=== PATIENT | male | born 1975 | race Caucasian/White ===

== ENCOUNTER 2024-12-28 12:56 | Outpatient (REF) | payer OTHER, SELFPAY ==
[2024-12-28 13:18] LABS: MANUAL DIFF FLAG NO
[2024-12-28 13:31] LABS: Ammonia 39 umol/L (13-55)
[2024-12-28 13:39] LABS: Alanine Aminotransferase 13 U/L (0-40); Albumin Level 4.7 g/dL (3.5-5.0); Alkaline Phosphatase 103 U/L (39-117); Anion Gap 11 (12-20); Aspartate Amino Transferase 22 U/L (5-37); Blood Urea Nitrogen 13 mg/dL (9-16); Calcium 8.9 mg/dL (8.4-10.2); Carbon Dioxide 24 mmol/L (22-29); Chloride 103 mmol/L (96-108); Estimated Glomerular Filt Rate > 60; Potassium 4.9 mmol/L (3.3-5.1); Sodium 133 mmol/L (135-145); Total Protein 7.5 g/dL (6.5-8.0)
[2024-12-28 13:45] LABS: Hematocrit 38.7 % (42.0-52.0); Hemoglobin 13.6 g/dl (14.0-18.0); Imm Gran Abs Auto 0.01 X10*3/uL (0.00-0.03); Imm Gran Pct Auto 0.1 % (0.0-0.4); Lymphocytes Absolute Auto 1.5 X10*3/uL (1.2-4.9); Mean Corpuscular HGB Conc 35.1 g/dl (31.0-36.0); Mean Corpuscular Hemoglobin 29.9 pg (27.0-33.0); Mean Corpuscular Volume 85.1 fL (80.0-98.0); NRBC Abs Auto 0.000 X10*3/uL (0.0-0.012); NRBC Pct Auto 0.0 /100WBC (0.0-0.2); Platelet Count 282 X10*3/uL (160-400); Red Blood Count 4.55 X10*6/uL (4.60-5.80); White Blood Count 6.8 X10*3/uL (4.8-10.8)
--- OUTSIDE RECORDS SUMMARY | 2024-12-28 15:14 | XMS_ITS | Clinical Summary ---
Author Organization [facility] Address [address] [place] [address] Care Team Providers Care Record Label Intern Name Role Phone Jona Connell MD Primary Care Provider [phone] Allergies No known active allergies Medications * This document contains information received from the source organization and may not represent a complete record from that organization. metoprolol tartrate (Lopressor) 50 MG tablet Take 1 tablet by mouth 2 (two) times a day. 2 Active albuterol (Proventil;Vent magda) 108 (90 Base) MCG/ACT inhaler Inhale 2 puffs every 4 (four) hours if needed for wheezing. 2 Active buprenorphine-n aloxone (Suboxone) 8-[address] 1 Film under the tongue 1 (one) time each day. 2 Active traZODone (Desyrel) 50 MG tablet Take 50 mg by mouth every night. 3 Active OXcarbazepine (Trileptal) 300 MG tablet Take 300 mg by mouth in the morning and 300 mg before bedtime. 3 Active citalopram (CeleXA) 20 MG tablet Take 20 mg by mouth 1 (one) time each day. 3 Active QUEtiapine (SEROquel) 100 MG tablet Take 100 mg by mouth 1 (one) time each day. Active mometasone-form oterol (Dulera 200) 200-5 MCG/ACT inhaler Inhale 2 puffs in the morning and 2 puffs before bedtime. Rinse mouth with water after use to reduce aftertaste and incidence of candidiasis. Do not swallow.. 13 g 11 3 Active Active Problems Problem Noted Date Diagnosed Date Alcohol withdrawal seizure without complication 03/05/2023 Syncope 01/21/2023 COPD exacerbation 01/21/2023 Streptococcal pneumonia 09/27/2022 09/26/19 Hyponatremia 09/25/2022 COPD without exacerbation 09/25/2022 Anxiety disorder 09/25/2022 Alcohol withdrawal syndrome without complication 10/07/2021 GI bleeding 09/08/2021 Gastrointestinal hemorrhage, unspecified gastrointestinal hemorrhage type 09/08/2021 Aspiration pneumonia of left lower lobe due to regurgitated food 08/04/2021 01/21/2023 Hypomagnesemia 08/03/2021 01/21/2023 Acute drug withdrawal syndrome, uncomplicated Pseudoseizure 04/14/2021 Alcohol withdrawal seizure with delirium 022 Nicotine dependence, cigarettes, with withdrawal 04/04/2021 Alcohol withdrawal 04/03/2021 COVID-19 03/17/2021 01/21/2023 Overview (01/21/2023): Last Assessment & Plan: Not hypoxic and with no identifiable comorbid conditions predisposing to acute decline in clinical status. Albuterol hfa prn Alcohol abuse with withdrawal 12/20/2020 Hypoxemia 12/20/2020 Essential hypertension 12/20/2020 History of anxiety 12/20/2020 Tobacco abuse 12/20/2020 Alcohol dependence 07/03/2020 Cannabis dependence, uncomplicated 07/03/2020 Major depressive disorder, single episode, moder ate 07/03/2020 Opioid dependence in remission 07/03/2020 Pneumonia 07/03/2020 Encounters Date Type Department Care Team Description 11/30/2024 3:06 PM EDT - 11/30/2024 11:59 PM EDT Hospital Encounter [facility] [address] [place] [id number] Discharge Disposition: Home/Self Care from Last 3 Months Immunizations Immunization Administration Dates Next Due Influenza, Quadrivalent, Preservative Free 03/20 Tdap 07/05/2020 Family History Medical History Relation Comments Diverticulitis Mother Relation Status Comments Mother Social History Tobacco Use Types Packs/Day Years Used Date Smoking Tobacco: Every Day Cigarettes 1 10 Smokeless Tobacco: Never Tobacco Cessation:Ready to Q uit: Not Asked; Counseling Given: Not Answered Alcohol Use Standard Drinks/Week Comments Not Currently 0 (1 standard drink = 0.6 oz pur e alcohol) Overall Financial Resource Strain (CARDIA) Answe r Date Recorded How hard is it for you to pa y for the very basics like food, housing, medical care, and heating? Not hard at all 05/23/2023 PHQ-2 Answer Date Recorded Patient Health Questionnaire-2 Score 2 09/25/2022 [facility] Occupat ional Health - Occupational Stress Questionnaire Answer Date Recorded Do you feel stress - tense, restless, nervous, or anxious, or unable to sleep at night because your mind is troubled all the time - these days? Very much 09/25/2022 Exercise Vital Sign Answer Date Recorde d On average, how many days pe r week do you engage in moderate to strenuous exercise (like a brisk walk)? 3 days 09/25/2022 On average, how many minutes do you engage in exercise at this level? 30 min 09/25/2022 Hunger Vital Sign Answer Date Recorded Within the past 12 months, y ou worried that your food would run out before you got the money to buy more. Never true 05/23/19 24 Within the past 12 months, t he food you bought just didn't last and you didn't have money to get more. Never true 05/23/2023 PRAPARE - Transportation Answer Date Re corded In the past 12 months, has l ack of transportation kept you from medical appointments or from getting medications? Yes 02/2023 In the past 12 months, has l ack of transportation kept you from meetings, work, or from getting things needed for daily living? Yes 05/23/2023 Housing Stability Vital Sign Answer Celso e Recorded In the last 12 months, was t here a time when you were not able to pay the mortgage or rent on time? No 05/23/2023 In the last 12 months, how many places have you lived? 1 05/23/2023 In the last 12 months, was t here a time when you did not have a steady place to sleep or slept in a intermediate (including now)? No 05/23/2023 Alcohol Use/AUDIT-C Answer Date Recorde d How often do you have a drink containing alcohol ? 2-3 times a week 05/23/2023 How many standard drinks con taining alcohol do you have on a typical day? 5 or 6 05/23/2023 How often do you have six or more drinks on one occasion? Weekly 05/23/2023 Sex and Gender Information Value Date Recorded Sex Assigned at Not on file Legal Sex Male 9:03 PM EDT Gender Identity Not on file Sexual Orientation Not on file Last Filed Vital Signs Vital Sign Reading Time Taken Comments Blood Pressure 153/107 05/31/2024 2:59 PM EDT Pulse 84 05/31/2024 2:59 PM EDT Temperature 36.4 C (97.5 F) 05/31/2024 2:59 PM EDT Respiratory Rate 18 05/31/2024 2:59 PM EDT Oxygen Saturation 97% 05/31/2024 2:59 PM EDT Inhaled Oxygen Concentration - - Weight 97.5 kg (215 lb) 11/23/2023 12:06 AM EDT Height 188 cm (6' 2 ) 11/23/2023 12:06 AM EDT Body Mass Index 27.6 11/23/2023 12:06 AM EDT Plan of Treatment Health Maintenance Due Date Last Done Comments Hepatitis C Screening 1975 HIV Screening 04/29/1990 Annual Wellness Visit 04/29/1993 Pneumococcal Vaccine: Pediat rics (0 to 5 Years) and At-Risk Patients (6 to 64 Years) (1 of 2 - PCV) 04/29/1994 CT Colonography 04/29/2020 FIT-DNA 04/29/2020 FIT 04/29/2020 FOBT 04/29/2020 Sigmoidoscopy 04/29/2020 Influenza Vaccine (#1) 2024 03/20/2017 DTaP,Tdap,and Td Vaccines (2 - Td or Tdap) 07/05/2030 07/05/2020 Colonoscopy 09/11/2031 09/10/2021 Colorectal Cancer Screening 09/11/2031 Diabetes Screening Discontinued 08/04/2021 HPV Vaccines Aged Out No longer eligi ble based on patient's age to complete this topic Meningococcal Vaccine Aged Out No anne kimberly eligible based on patient's age to complete this topic Procedures Procedure Name Priority Date/Time Associated Diagnosis Comments HC EVAL OF BRONCHOSPASM - SPIROMETRY WITH BRONCHODILATOR Routine 11/30/2024 3:22 PM EDT Unspecified asthma, uncomplicated ([facility]) COLONOSCOPY Routine 09/10/2021 11:30 AM EDT from Last 3 Months or Most Recently Relevant to Health Maintenance Results * Pulmonary function test (11/30/2024 3:22 PM EDT) Narrative Artie Zaomra MD - 12/04/2024 11:37 AM EDT Pulmonary Function Test Interpretation Test performed: Spirometry and bronchodilator test. Spirometry: Spirometry shows an obstructive ventilatory defect. The degree of obstruction is moderate per Z-score criteria. Reduction in forced vital capacity may suggest a concomitant restrictive lung disease. Lung volumes required for further assessment. Bronchodilator Challenge: Positive bronchodilator challenge in both FVC and FEV1. Summary: Moderate obstruction with positive bronchodilator response, compatible with COPD/asthma. Reduction in FVC might suggest a possible restrictive lung disease, lung volumes needed to further assess. Artie Zamora MD MPH Division of Pulmonary and Critical Care [facility] Colby Castro MD PFT ORDERABLES Final Result * Colonoscopy (09/10/2021 11:30 AM EDT) Anatomical Region Laterality Modality Other 09/10/2021 11:0 6 AM EDT Narrative 09/10/2021 11:27 AM EDT [facility] Patient Name: Scot Miller Procedure Date: 09/10/2021 11:06 AM Date of : 1975 Admit Type: Inpatient Age: 46 Room: O.R. ([facility]) Gender: Male Note Status: Finalized Attending MD: SAL WESTON MD Procedure: Colonoscopy Indications: Hematochezia, Rectal bleeding Providers: SAL WESTON MD, Bertha Guzman RN, Niru Lange, Paul Adams (Anesthesia Staff), MELYSSA OBREGON MD (Ordering Provider) Referring MD: JONA CONNELL MD Medicines: Monitored Anesthesia Care Complications: No immediate complications. Procedure: Pre-Anesthesia Assessment: - Prior to the procedure, a History and Physical was performed, and patient medications, allergies and sensitivities were reviewed. The patient's tolerance of previous anesthesia was reviewed. - The risks and benefits of the procedure and the sedation options and risks were discussed with the patient. All questions were answered and informed consent was obtained. Prior to performing the procedure, a history and physical was performed and medications and allergies were reviewed and recorded on the [facility] record. The was introduced through the anus and advanced to the the terminal ileum, with identification of the appendiceal orifice and IC valve. The colonoscopy was performed without difficulty. The patient tolerated the procedure well. The quality of the bowel preparation was good. Findings: The terminal ileum appeared normal. A few small-mouthed diverticula were found in the sigmoid colon, descending colon and ascending colon. Non-bleeding internal hemorrhoids were found during retroflexion. The hemorrhoids were medium-sized. Impression: - The examined portion of the ileum was normal. - Diverticulosis in the sigmoid colon, in the descending colon and in the ascending colon. - Non-bleeding internal hemorrhoids. - No specimens collected. Recommendation: - GI work-up completed at this time Advance diet Rectal bleeding was either diverticular or hemorrhoidal mediated. Procedure Code(s): --- Professional --- 71354, Colonoscopy, flexible; diagnostic, including collection of specimen(s) by brushing or washing, when performed (separate procedure) Diagnosis Code(s): --- Professional --- K64.8, Other hemorrhoids K92.1, Melena (includes Hematochezia) K62.5, Hemorrhage of anus and rectum K57.30, Diverticulosis of large intestine without perforation or abscess without bleeding CPT copyright 2019 [employer]. All rights reserved. The codes documented in this report are preliminary and upon physician coder review may be revised to meet current compliance requirements. Electronically signed by: MD SAL Brown MD 09/10/2021 11:27:35 AM Number of Addenda: 0 Note Initiated On: 09/10/2021 11:06 AM Procedure Date: 09/10/2021 11:06:27 AM Procedure Note Sal Weston MD - 09/10/2021 [facility] Patient Name: Scot Miller Procedure Date: 09/10/2021 11:06 AM Date of : 1975 Admit Type: Inpatient Age: 46 [facility] Gender[facility] Note Status: Finalized Attending MD: SAL WESTON MD Procedure: Colonoscopy Indications: Hematochezia, Rectal bleeding Providers: SAL WESTON MD, Bertha Guzman RN,Paul August (Anesthesia Staff), MELYSSA OBREGON MD (Ordering Provider) Referring MD: JONA CONNELL MD Medicines: Monitored Anesthesia Care Complications: No immediate complications. Procedure: Pre-Anesthesia Assessment: - Prior to the procedure, a History and Physicalwas performed, and patient medications, allergies and sensitivities were reviewed. The patient'stolerance of previous anesthesia was reviewed. - The risks and benefits of the procedure and the sedation options and risks were discussed with the patient. All questions were answered and informed consent was obtained. Prior to performing the procedure, a history and physical was performed and medications andallergies were reviewed and recorded on the [facility] record. Thewas introduced through the anus and advanced to the the terminal ileum, with identification of theappendiceal orifice and IC valve. The colonoscopy was performed without difficulty. The patient tolerated the procedure well. The quality of the bowelpreparation was good. Findings: The terminal ileum appeared normal. A few small-mouthed diverticula were found in the sigmoid colon, descending colon and ascending colon. Non-bleeding internal hemorrhoids were found during retroflexion. The hemorrhoids were medium-sized. Impression: - The examined portion of the ileum was normal. - Diverticulosis in the sigmoid colon, in the descending colon and in the ascending colon. - Non-bleeding internal hemorrhoids. - No specimens collected. Recommendation: - GI work-up completed at this time Advance diet Rectal bleeding was either diverticular or hemorrhoidal mediated. Procedure Code(s): --- Professional --- 47868, Colonoscopy, flexible; diagnostic, including collection of specimen(s) by brushing or washing,when performed (separate procedure) Diagnosis Code(s): --- Professional --- K64.8, Other hemorrhoids K92.1, Melena (includes Hematochezia) K62.5, Hemorrhage of anus and rectum K57.30, Diverticulosis of large intestine without perforation or abscess without bleeding CPT copyright 2019 [employer]. All rights reserved. The codes documented in this report are preliminary and upon physician coder reviewmay be revised to meet current compliance requirements. Electronically signed by: MD SAL Brown MD 09/10/2021 11:27:35 AM Number of Addenda: 0 Note Initiated On: 09/10/2021 11:06 AM Procedure Date: 09/10/2021 11:06:27 AM Melyssa Obregon MD GI PROCEDURE ORDERABLES Final Result from Last 3 Months or Most Recently Relevant to Health Maintenance Insurance [employer] Advance Directives Documents on File Type Date Recorded Patient Medical Staff Specialist Expl anation Advanced Directive 01/05/2021 2:41 PM Hea lt Care Proxy from Home (PHIC) * Full Code (Latest Code Status on File) Date Activated Date Inactivated Comments 04/05/2023 3:00 AM 04/05/2023 10:01 AM * Full Code Date Activated Date Inactivated Comments 03/05/2023 1:42 PM 03/07/2023 12:47 PM * Full Code Date Activated Date Inactivated Comments 01/21/2023 3:42 AM 01/21/2023 1:57 PM * Full Code Date Activated Date Inactivated Comments 09/25/2022 7:17 AM 09/29/2022 3:24 PM * Full Code Date Activated Date Inactivated Comments 10/07/2021 11:44 PM 10/08/2021 4:34 PM Care Teams Record Label Intern Relationship Specialty Start Date End Date Jona Connell MD [address] [place] [address] PCP - General Family Medicine 05/16/23
--- OUTSIDE RECORDS SUMMARY | 2024-12-28 15:14 | XMS_ITS | Encounter Summary ---
Author Organization [facility] Address [address] [place] [address] Care Team Providers Care Distribution Clerk Name Role Phone Provider, Hawk MCDONALD Primary Care Provider [phone] Isaias Salinas MD Primary Care Provider [phone] Isaias Salinas MD Primary Care Provider [phone] Encounter Details Date Type Department Care Team (Late st Contact Info) Description 09/29/2021 Orders Only [facility] Pre-Admission Testing [address] [place] [address] Jazzy Soliman, WINNIE 0 0 Social History Tobacco Use Types Packs/Day Years Used Date Smoking Tobacco: Every Day Cigarettes 1 10 Smokeless Tobacco: Never Alcohol Use Standard Drinks/Week Comments Yes 0 (1 standard drink = 0.6 oz pur e alcohol) handle vodka daily Sex and Gender Information Value Date Recorded Sex Assigned at Not on file Legal Sex Male 9:03 PM EDT Gender Identity Not on file Sexual Orientation Not on file COVID-19 Exposure Response Date Recorded In the last 10 days, have yo u been in contact with someone who was confirmed or suspected to have Coronavirus/COVID-19? No / Unsure 09/08/2021 12:06 AM EDT documented as of this encounter Plan of Treatment Not on file documented as of this encounter Visit Diagnoses Not on filedocumented in this encounter Additional Health Concerns Infection Onset Date Last Indicated Resolved Time COVID-19 Rule-Out 10/07/2021 10/07/2021 10/07/2021 11:18 PM EDT COVID-19 Rule-Out 07/17/2022 07/17/2022 07/18/2022 1:02 AM EDT COVID-19 Rule-Out 07/27/2022 07/27/2022 07/27/2022 11:17 AM EDT COVID-19 Rule-Out 09/25/2022 09/25/2022 09/25/2022 6:56 AM EDT COVID-19 Rule-Out 01/21/2023 01/21/2023 01/21/2023 1:32 AM EST COVID-19 Rule-Out 03/05/2023 03/05/2023 03/05/2023 2:43 PM EST COVID-19 Rule-Out 05/16/2023 05/16/2023 05/17/2023 12:50 AM EDT COVID-19 Rule-Out 06/08/2023 06/08/2023 06/08/2023 2:28 AM EDT documented as of this encounter Care Teams Distribution Clerk Relationship Specialty Start Date End Date Provider, MD Hawk [address] [place] [id number] PCP - General Psychiatry Adult Physician 10/07/21 09/29/22 Isaias Salinas MD [address] [place] [address] PCP - General Family Medicine 09/30/22 02/24/23 Isaias Salinas MD [address] [place] [address] PCP - General Family Medicine 05/16/23 documented as of this encounter
--- OUTSIDE RECORDS SUMMARY | 2024-12-28 15:14 | XMS_ITS | Encounter Summary ---
Author Organization [facility] Address [address] [place] [address] Care Team Providers Care Administrative Law Judge Name Role Phone Provider, Hawk MCDONALD Primary Care Provider [phone] Isaias Salinas MD Primary Care Provider [phone] Isaias Salinas MD Primary Care Provider [phone] Encounter Details Date Type Department Care Team (Late st Contact Info) Description 09/28/2021 Orders Only [facility] Pre-Admission Testing [address] [place] [address] Lana Lauren, RN Social History Tobacco Use Types Packs/Day Years [...] documented as of this encounter Care Teams Administrative Law Judge Relationship Specialty Start Date End Date Provider, MD Hawk [address] [place] [id number] PCP - General Rn Support Services 10/07/21 09/29/22 Isaias Salinas MD [address] [place] [address] PCP - General Family Medicine 09/30/22 02/24/23 Isaias Salinas MD [address] [place] [address] PCP - General Family Medicine 05/16/23 documented as of this encounter
--- OUTSIDE RECORDS SUMMARY | 2024-12-28 15:14 | XMS_ITS | Encounter Summary ---
Author Organization [facility] Address [address] [place] [address] Care Team Providers Care Reclamation Furnace Operator Name Role Phone Isaias Salinas MD Primary Care Provider [phone] Isaias Salinas MD Primary Care Provider [phone] Encounter Details Date Type Department Care Team (Late st Contact Info) Description 10/04/2022 Orders Only [address] [address] Belinda Miguel MD [address] [place] [address] Social History Tobacco Use Types Packs/Day Years Used Date Smoking Tobacco: Every Day Cigarettes 1 10 Smokeless Tobacco: Never Alcohol Use Standard Drinks/Week Comments Yes 0 (1 standard drink = 0.6 oz pur e alcohol) handle vodka daily PHQ-2 Answer Date Recorded Patient Health Questionnaire-2 Score 2 09/25/2022 [facility] [place] of Occupat ional Health - Occupational Stress [...] exercise at this level? 30 min 09/25/2022 Alcohol Use/AUDIT-C Answer Date Recorde d How often do you have a drin k containing alcohol? Unrecognized value 09/25/2022 How many standard drinks con taining alcohol do you have on a typical day? Patient does not drink 09/25/2022 How often do you have six or more drinks on one occasion? Unrecognized value 09/25/2022 Sex and Gender Information Value Date Recorded Sex Assigned at Not on file Legal Sex Male 9:03 PM EDT Gender Identity Not on file Sexual Orientation Not on file documented as of this encounter Plan of Treatment Not on file documented as of this encounter Visit Diagnoses Not on filedocumented in this encounter Additional Health Concerns Infection Onset Date Last Indicated Resolved Time COVID-19 Rule-Out 01/21/2023 01/21/2023 01/21/2023 1:32 AM EST COVID-19 Rule-Out 03/05/2023 03/05/2023 03/05/2023 2:43 PM EST COVID-19 Rule-Out 05/16/2023 05/16/2023 05/17/2023 12:50 AM EDT COVID-19 Rule-Out 06/08/2023 06/08/2023 06/08/2023 2:28 AM EDT documented as of this encounter Care Teams Reclamation Furnace Operator Relationship Specialty Start Date End Date Isaias Salinas MD [address] [place] [address] PCP - General Family Medicine 09/30/22 02/24/23 Isaias Salinas MD [address] [place] [address] PCP - General Family Medicine 05/16/23 documented as of this encounter
--- OUTSIDE RECORDS SUMMARY | 2024-12-28 15:14 | XMS_ITS | Encounter Summary ---
Author Organization [facility] Address [address] [place] [address] Care Team Providers Care Software Validation Technician Name Role Phone Isaias Salinas MD Primary Care Provider [phone] Isaias Salinas MD Primary Care Provider Encounter Details Date Type Department Care Team (Late st Contact Info) Description 01/25/2023 Orders Only [address] [address] Keily Ibarra MD [address] [place], [place] [id number] Social History Tobacco Use Types Packs/Day Years Used Date Smoking Tobacco: Every Day Cigarettes 1 10 Smokeless Tobacco: Never Alcohol Use Standard Drinks/Week Comments Yes 0 (1 standard drink = 0.6 oz pur e alcohol) handle vodka daily PHQ-2 Answer Date Recorded Patient Health Questionnaire-2 Score 2 09/25/2022 [facility] of Occupat ional Health - Occupational Stress [...] a drin k containing alcohol? Unrecognized value 01/21/2023 How many standard drinks con taining alcohol do you have on a typical day? Patient does not drink 01/21/2023 How often do you have six or more drinks on one occasion? Unrecognized value 01/21/2023 Sex and Gender Information Value Date Recorded [...] Date Last Indicated Resolved Time COVID-19 Rule-Out 03/05/2023 03/05/2023 03/05/2023 2:43 PM EST COVID-19 Rule-Out 05/16/2023 05/16/2023 05/17/2023 12:50 AM EDT COVID-19 Rule-Out 06/08/2023 06/08/2023 06/08/2023 2:28 AM EDT documented as of this encounter Care Teams Software Validation Technician Relationship Specialty Start Date End Date Isaias Salinas MD [address] [place] [address] PCP - General Family Medicine 09/30/22 02/24/23 Isaias Salinas MD [address] [place] [address] PCP - General Family Medicine 05/16/23 documented as of this encounter
== END 2024-12-28 12:57 | disposition home or self-care (01) ==
LOC: HO.LAB 12:56
PROVIDERS: Visit Provider Nurse Practitioner Psychiatric/Mental Health
DX: E87.1 Hypo-osmolality and hyponatremia (principal); I10 Essential (primary) hypertension; F10.20 Alcohol dependence, uncomplicated; F11.20 Opioid dependence, uncomplicated; R25.1 Tremor, unspecified; Z01.89 Encounter for other specified special examinations
CPT/HCPCS: 36415; 80053; 82140; 82248; 85025